=== PATIENT | male | born 2005 | race Caucasian/White ===

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

== ENCOUNTER → 2024-10-06 10:01 | Outpatient (BNV) | payer OTHER, SELFPAY | PROVIDERS: Emergency Provider Emergency Medicine; Visit Provider Radiology Diagnostic Radiology | DX: S62.254A Nondisplaced fracture of neck of first metacarpal bone, right hand, initial encounter for closed fracture (principal) | CPT/HCPCS: 73140 ==

== ENCOUNTER 2024-10-06 10:38 | Emergency (ER) | payer OTHER, SELFPAY ==
--- NOTE | ~2024-10-06 | XR_ITS ---
EXAMINATION: XR FINGER, RIGHT CLINICAL INFORMATION: thumb pain trauma COMPARISON: None available. TECHNIQUE: PA hand and 2 views of the right thumb. FINDINGS: Short linear cortical fragment is seen posterior to the neck of the first metacarpal. Otherwise, joint spaces are preserved. No fracture lines are evident. There are no erosions. Small ossification distal to the ulnar styloid is probably related to a remote ulnar styloid tip fracture, healed with nonunion. XR/XR finger RT min 2V IMPRESSION: Suspected small focal avulsion fracture involving the cortex along the volar neck of the first metacarpal of the right hand. Electronically signed by: Alan Alarcon MD 10/06/2024 11:08 AM EDT
[2024-10-06 10:45] VITALS: BP 145/69; PULSE 96; RESP 18; TEMP 36.6; O2SAT 98; BMI 21.9
--- NOTE | 2024-10-06 11:11 | ED_ITS ---
HPI - Extremity Problem General Chief complaint: Extremity Injury, Upper Stated complaint: Thumb dislocation Time Seen by Provider: 10/06/24 11:09 Source: patient Mode of arrival: ambulatory Limitations: no limitations History of Present Illness ED Provider: Benji Garcia PA-C HPI Narrative: 18-year-old male with history of asthma presents to the ED due to right thumb injury while playing kickball. Patient cites he was sliding into base on his bottom, and had his and to his sides when he jammed his right thumb into the ground hyperextending the digit, no head strike. He states he immediately felt some pain and swelling and came to the ED for evaluation. Patient has not taken anything for pain today. Denies chest pain, shortness of breath, numbness or tingling of the right hand, weakness of the right hand Related Data Previous Rx's ?Medication ?Instructions ?Recorded albuterol sulfate 90 mcg/actuation 2 puff inhalation Q 4-6H PRN 04/25/23 aerosol inhaler shortness of breath or wheez ing, chest tight,cough 6 months #8.5 grams inhalational spacing device #1 ea 04/25/23 (Aerochamber MV spacer) loratadine 10 mg tablet 10 mg PO DAILY #90 tabs 04/11 08/01 Allergies Allergy/AdvReac Type Severity Reaction Status Date / Time No Known Allergies Allergy Verified 10/06/24 10:47 Review of Systems Review of Systems: CONST: Negative for fever, body aches and chills. HENT: Negative for neck pain/stiffness, headache, congestion, sore throat, swelling. EYES: Negative for discharge/pain or vision changes. RESP: Negative for cough/hemoptysis and shortness of breath. CV: Negative chest pain, difficulty breathing, palpitations. ABD: Negative pain, nausea, vomiting. : Negative increase frequency, dysuria, blood in urine or stool. MUSC: Negative for muscle aches, edema. R thumb pain SKIN: Negative rash, lesions/sores. NEURO: Negative headache, dizziness, weakness. COUNT INCLUDES THE [facility] Past Medical History Attestation statement: The following information was validated with the patient. Source: old records reviewed and nursing notes reviewed Medical History Cannabis abuse Current nicotine vaping on some days Allergic to dogs Cat allergies Dust allergy Intermittent asthma with acute exacerbation Social History Social History Household Members Other:: lives w/ mom Housing Other:: w/ Girlfriend x 7mo who is a Jr. at [employer] and she has a dog Advance Directives: No Advance Directives Information Provided: Yes Do you have a plan to hurt others: No Plan Current occupational status: employed and student Current occupation: works at the [employer] Sexual orientation: Straight/Heterosexual Gender identity: Male Physical Exam Vital Signs: Vital Signs: Last Vital Signs Temp 98 F 10/06/24 10:45 Pulse 96 10/06/24 10:45 Resp 18 10/06/24 10:45 BP 145/69 H 10/06/24 10:45 Pulse Ox 98 10/06/24 10:45 O2 Del Method Room Air 10/06/24 10:45 BMI result Body Mass Index 21.9 GENERAL APPEARANCE: ?AxOx4, generally well-appearing, no acute distress. HEENT: ?NC, AT. MMM. EOMI, clear conjunctiva, oropharynx clear. NECK: ?Supple without lymphadenopathy.? No stiffness or restricted ROM. HEART:? Normal rate and regular rhythm, normal S1/S2, no m/r/g LUNGS:? CTAB, moving air well. No crackles or wheezes are heard. EXTREMITIES: ?Without cyanosis, clubbing or edema. R hand first metacarpal with mild palmar edema without ecchymosis, ROM intact, opposition intact, SILT, appropriate capillary refill, radial pulses 2+ bilaterally, no scaphoid tenderness to palpation NEUROLOGICAL: ?Grossly nonfocal. Alert and oriented, moving all 4 extremities. Observed to ambulate with normal gait. Skin: ?Warm and dry without any rash. Medical Decision Making Medical Decision Making MDM Narrative: 18-year-old right-hand dominant male with history of asthma presents to the ED due to right thumb injury while playing kickball. Patient cites he was sliding into base on his bottom, and had his and to his sides when he jammed his right thumb into the ground hyperextending the digit, no head strike. He states he immediately felt some pain and swelling and came to the ED for evaluation. Patient has not taken anything for pain today. VSS, nontoxic appearing, no acute distress. Physical exam of right 1st metacarpal reveals tenderness over proximal MCP joint, ROM intact, opposition intact, appropriate capillary refill, SILT, able to make full fist, no scaphoid tenderness mild edema of the palmar aspect without ecchymosis, patient without numbness or tingling. X-ray reveals suspected small focal avulsion fracture involving the cortex along the volar neck of the 1st metacarpal of the right hand. Patient placed in a thumb spica velcro splint. I counseled patient on keeping splint on during day and night, may remove velcro splint for showering taking care not to extend the thumb, and placing velcro splint back on immediately after shower. Counseled patient to alternate Tylenol and ibuprofen every 6 hours for pain relief, icing, elevation, and follow up with Orthopedics. Patient understands the course, is in agreement with the plan. Differential Diagnosis Differential Diagnoses: The differential diagnosis associated with the presentation includes Thumb fracture Thumb dislocation UCL tear Admission/Observation Consideration of admission/observation: Escalation of care including admission/observation considered Independent Interpretation I performed an independent interpretation of an: Plain X-Ray Interpretation: I personally interpreted the x-ray- without dislocation fracture does not involve the joint space Radiology Impression Discussion of test interpretation with radiology: I have reviewed the radiologist's reading. Radiologist Impression: FINDINGS: Short linear cortical fragment is seen posterior to the neck of the first metacarpal. Otherwise, joint spaces are preserved. No fracture lines are evident. There are no erosions. Small ossification distal to the ulnar styloid is probably related to a remote ulnar styloid tip fracture, healed with nonunion. XR/XR finger RT min 2V IMPRESSION: Suspected small focal avulsion fracture involving the cortex along the volar neck of the first metacarpal of the right hand. Electronically signed by: Alan Alarcon MD 10/06/2024 11:08 AM EDT Dictated By: Alan Alarcon MD Signed By: <Electronically signed by Alan Alarcon MD in OV> 10/06/24 1108 External Record Review External record reviewed: Inpatient record, Office record and Outpatient record Discharge Plan Discharge Clinical Impression: Avulsion fracture of right thumb Patient Disposition: Home, Self-Care Instructions: Thumb Fracture (ED) Additional Instructions: You were evaluated in the ED today after injuring her right thumb. The x-ray of your thumb revealed a small avulsion fracture without dislocation. Your physical exam revealed tenderness over your thumb, and some swelling of the palmar aspect of your thumb. You had full range of motion, you had appropriate capillary refill time, sensation is intact, without numbness or tingling. Thumb spica velcro splint placed while in the department. You were given 400 mg of ibuprofen for pain management. To control pain you can take 500 mg of Tylenol, 400 mg of ibuprofen every 6 hours. You can ice the area and 15 minute increments and elevation for swelling. Please follow up with the orthopedic doctors, you need to call their office they will not call you. Please keep the splint on during the day during her activities, and at night while sleeping. You can take the splint off to shower, be sure to take care of the positioning of your thumb while showering, and place the splint on immediately after. Please return to the emergency department if you experience worsening pain of your right thumb, decreased sensation of your right thumb, weakness of your right hand or thumb, or any other new/worsening/concerning symptom Prescriptions: No Action albuterol sulfate 90 mcg/actuation HFA aerosol inhaler 2 puff inhalation Q4-6H PRN (Reason: shortness of breath or wheezing, chest tight,cough) 180 Days Qty: 8.5 0RF loratadine 10 mg tablet 10 mg PO DAILY Qty: 90 0RF (DME) Aerochamber MV Spacer See Rx Instructions .Route Qty: 1 0RF Rx Instructions: As directed Referrals: Jose Leblanc PA-C [Emergency Midlevel Provider, Emergency Medicine] [facility] [Provider Group] Print Language: Albanian
[2024-10-06 12:51] VITALS: BP 138/72; PULSE 72; RESP 18; TEMP 36.7; O2SAT 98
--- OUTSIDE RECORDS SUMMARY | 2024-10-06 12:51 | XMS_ITS | Clinical Summary ---
Author Organization [facility] Address [address] [place] [phone] Phone Care Team Providers Care Repairer Wood Furniture Name Role Phone Unavailable Primary Care Provider Unavailabl e Immunizations Immunization Administration Dates Next Due DTaP 11/11/2008, 6,02/26/2005,2004 Hep B, ped/adol 04/23/2005, 5,2004,2004 Hib (PRP-OMP) 10/24/2005, 6,02/26/2005,2004 Influenza, injectable, quadr ivalent, preservative free 01/27/2009,12/03/2008 MMR 11/11/2008,10/24/2005 Pneumococcal Conjugate 10/24/2005,2005,02/26/2005,2004 Polio 11/11/2008, 6,02/26/2005,2004 Varicella 11/11/2008,10/24/2005 Social History Tobacco Use Types Packs/Day Years Used Date Smoking Tobacco: Never Assessed Sex and Gender Information Value Date Recorded Sex Assigned at Not on file Legal Sex Male 1:15 PM EST Gender Identity Not on file Sexual Orientation Not on file Last Filed Vital Signs Vital Sign Reading Time Taken Comments Blood Pressure 82/48 06/21/2010 12:00 AM EDT Pulse - - Temperature 37.1 C (98.7 F) 02/23/2010 12:00 AM EST Respiratory Rate - - Oxygen Saturation - - Inhaled Oxygen Concentration - - Weight 17.9 kg (39 lb 8 oz) 06/21/2010 12:00 AM EDT Height 108 cm (3' 6.5 ) 06/21/2010 12:00 AM EDT Pfwtnc-qaf-Yxdtxo Percentile 47.92% 06/21/2010 1 2:00 AM EDT Growth Chart: CDC (Boys, 2-2 0 Years) Body Mass Index 15.38 06/21/2010 12:00 AM EDT Body Mass Index Percentile 50.11% 06/21/2010 12: 00 AM EDT Growth Chart: [facility] (Boys, 2-2 0 Years) Plan of Treatment Health Maintenance Due Date Last Done Comments DTaP,Tdap,and Td Vaccines (5 - Tdap) 10/20/2015 11/11/2008, 04/23/2005, 02/26/2005, Additional history exists HPV Vaccines (1 - Male 3-dose series) 10/20/2019 Men B Vaccine (1 of 2 - Standard) 2020 COVID-19 Vaccine (1 - season) 2023 Influenza Vaccines (#1) 2024 01/27/2009, 12/03 Hepatitis B Vaccines Completed 04/23/2005, 02/26/2005, 2004, Additional history exists HIB Vaccines Completed 10/24/2005, 04/11, 02/26/2005, Additional history exists Pneumococcal Vaccine Completed 10/24/2005, 04/23/2005, 02/26/2005, Additional history exists IPV Vaccines Completed 11/11/2008, 04/11, 02/26/2005, Additional history exists MMR Vaccines Completed 11/11/2008, 10/24/2005 Varicella Vaccines Completed 11/11/2008, 10/24/2005 Hepatitis A Vaccines Aged Out No long er eligible based on patient's age to complete this topic Meningococcal Vaccine Aged Out No remy melida eligible based on patient's age to complete this topic Insurance [facility] NON PCC
[2024-10-06 13:08] VITALS: BP 138/72; PULSE 72; RESP 18; TEMP 36.7; O2SAT 98
== END 2024-10-06 13:08 | disposition home or self-care (01) ==
PROVIDERS: Emergency Provider Emergency Medicine
DX: S62.501A Fracture of unspecified phalanx of right thumb, initial encounter for closed fracture (principal); W21.09XA Struck by other hit or thrown ball, initial encounter; M79.644 Pain in right finger(s); Y93.6A Activity, physical games generally associated with school recess, summer camp and children; Y92.9 Unspecified place or not applicable; Y99.9 Unspecified external cause status
CPT/HCPCS: 73140; 99283; 99284

== ENCOUNTER 2024-10-16 08:47 | Outpatient (REF) | payer OTHER, SELFPAY ==
--- NOTE | ~2024-10-16 | XR_ITS ---
EXAMINATION: XR HAND 3 OR MORE VIEWS RIGHT HISTORY: M79.641 - Pain in right hand COMPARISON: Comparison is made with the prior examination of the right thumb dated 10/06/2024. FINDINGS: Three views of the right hand are submitted. Osseous mineralization is normal. The previously seen a avulsion fracture of the head of the 1st metacarpal is less well visualized, and only seen on one view. Again seen is a well-corticated osseous density adjacent to the tip of the ulnar styloid which is likely the result of old trauma. The bones are otherwise intact. The joint spaces are preserved. The soft tissues are unremarkable. XR/XR hand RT min 3V IMPRESSION: The previously seen a avulsion fracture of the head of the metacarpal of the thumb is less well visualized. Electronically signed by: Harsha Rice MD 10/16/2024 01:59 PM EDT
--- OUTSIDE RECORDS SUMMARY | 2024-10-16 09:02 | XMS_ITS | Clinical Summary ---
Author Organization [facility] Address [address] [place] [phone] Phone Care Team Providers Care Morals Squad Police Officer Name Role Phone Unavailable Primary Care Provider [...] (3' 6.5 ) 06/21/2010 12:00 AM EDT Pbanln-dwf-Grqplc Percentile 47.92% 06/21/2010 1 2:00 AM EDT Growth Chart: CDC (Boys, 2-2 0 Years) Body Mass Index 15.38 06/21/2010 12:00 AM EDT Body Mass Index Percentile 50.11% 06/21/2010 12: 00 AM EDT Growth Chart: [facility] (Boys, 2-2 0 Years) Plan of Treatment [...] patient's age to complete this topic Insurance [facility] NON PCC
== END 2024-10-16 08:48 | disposition home or self-care (01) ==
LOC: HO.HOSX 08:47
DX: S62.501A Fracture of unspecified phalanx of right thumb, initial encounter for closed fracture (principal)
CPT/HCPCS: 73130; 99202

== ENCOUNTER 2024-10-16 12:36 | Outpatient (AMB) | payer OTHER, SELFPAY ==
--- NOTE | 2024-10-16 12:58 | A.OFFVIS_ITS ---
Vital Signs 10/16/24 13:02 Height 5 ft 8 in Weight 138 lb BMI 21.0 Handedness Right Intake Visit Reasons: FC-Rt thumb avulsion fx DOI: 10/05/24 Intake Note: Jeison is a 18 year old right hand dominant male, new patient, who presents today for an ED follow up status post right thumb avulsion fracture, DOI: 10/05/24. Patient [place] [facility] [place] on 10/05/24 he was playing kickball and while sliding into a base his hand got stuck under the base, he jammed his right thumb into the ground hyperextending the digit. At the ED, he was placed in thumb spica velcro splint. A script of 400 mg of ibuprofen was sent. He reports he has not had much pain in the right thumb since date of injury. Denies numbness and tingling. He expresses he wears the brace at all times exept for showering and putting lotion on. Allergies No Known Allergies Allergy (Verified 10/16/24 13:02) HPI HPI FC-Rt thumb avulsion fx DOI: 10/05/24: Details: Jeison is a 18 year old right hand dominant male, new patient, who presents today for an ED follow up status post right thumb avulsion fracture, DOI: 10/05/24. Patient reported to [facility] on 10/05/24 he was playing kickball and while sliding into a base his hand got stuck under the base, he jammed his right thumb into the ground hyperextending the digit. At the ED, he was placed in thumb spica velcro splint. A script of 400 mg of ibuprofen was sent. He reports he has not had much pain in the right thumb since date of injury. Denies numbness and tingling. He expresses he wears the brace at all times exept for showering and putting lotion on. [facility] Medical History Cannabis abuse Current nicotine vaping on some days Allergic to dogs Cat allergies Dust allergy Intermittent asthma with acute exacerbation Social History (Updated 10/16/24 @ 13:03 by ALBINO Delgado) Household Members Other:: lives w/ mom Housing Other:: w/ Girlfriend x 7mo who is a Jr. at [employer] and she has a dog Current occupational status: student Current occupation: right handed Sexual orientation: Straight/Heterosexual Gender identity: Male Review of Systems Const All systems reviewed & are unremarkable except as noted in HPI and below Physical Exam Vital Signs: BMI result Body Mass Index 21.0 Extrem Other: Patient is alert, oriented, and in no acute distress. Neuro: Normal sensation of the tips of all digits of the right hand at this time Vascular: Cap refill brisk Pain: Minimal tenderness to palpation of the ulnar aspect of the MCP joint of the right thumb No pain with attempted range of motion ROM: Patient is able to flex and extend the right thumb fully Patient does have Good endpoints with varus and valgus testing of the MCP joint of the right thumb There is an area of prominence on the ulnar aspect of the MCP joint of the right thumb Skin: No lacerations or abrasions. General: No ecchymosis, erythema, or evidence of infection. Psych: Appears grossly normal Affect normal Attitude cooperative Results Reviewed Results Reviewed: X-rays obtained in the office today and independently reviewed by me, Mane Gaxiola PA-C, demonstrate tiny avulsion fracture on the ulnar aspect of the MCP joint of the right thumb concerning for avulsion injury of the UCL. Assessment & Plan Assessment & Plan (1) Avulsion fracture of right thumb: Code(s): S62.501A - Fracture of unspecified phalanx of right thumb, initial encounter for closed fracture Category: Medical Plan 1. Avulsion fracture of MCP joint of right thumb Date of injury 10/05/2024 Patient is educated about this injury Patient is educated about the typical treatment course At this time, patient is referred to Dr. Mireles, as I feel there is a risk that he has a potential injury to his UCL and may require further intervention However, the patient does have a good endpoint with varus and valgus testing of the UCL of the right thumb, so I do not feel it is a full-thickness tear if there is a tear to the UCL Patient should be re-evaluated by Dr. Mireles early next week for determination if any further intervention is indicated Orders: Orders XR hand RT min 3V 10/16/24 M79.641 - Pain in right hand Coding Level of Care Code New Pt Level 3 (09202) Diagnoses Avulsion fracture of right thumb S62.501A
[2024-10-16 13:02] VITALS: BMI 21.0
== END 2024-10-16 13:31 | disposition home or self-care (01) ==
LOC: HO.HOS 12:37
DX: S62.501A Fracture of unspecified phalanx of right thumb, initial encounter for closed fracture (principal)
CPT/HCPCS: 99203

== ENCOUNTER → 2024-10-16 12:43 | Outpatient (BNV) | payer OTHER, SELFPAY | PROVIDERS: Visit Provider Radiology Diagnostic Radiology | DX: M79.641 Pain in right hand (principal) | CPT/HCPCS: 73130 ==

== ENCOUNTER 2024-10-21 13:41 | Outpatient (AMB) | payer OTHER, SELFPAY ==
--- NOTE | 2024-10-21 14:00 | A.OFFVIS_ITS ---
Intake Visit Reasons: OV: poss UCL injury, Rt Thumb Intake Note: Jeison is a 18 year old right hand dominant male who presents today for an follow up status post right thumb injury, DOI: 10/05/24. Patient reported to [facility] on 10/05/24. He was playing kickball, while sliding into a base his hand got stuck under the base, he jammed his right thumb into the ground hyperextending the digit. At his last visit with Mane Gaxiola he was placed in thumb spica splint. Currently states he has no pain, he has not removed his splint. Patient referred to Dr. Mireles for further evaualtion. Allergies No Known Allergies Allergy (Verified 10/21/24 14:01) HPI HPI OV: poss UCL injury, Rt Thumb: Details: Jeison is a 19 year old right hand dominant man who presents for a right thumb avulsion fracture, S/P kickball injury, DOI: 10/05/24. He was seen in the ED and given a thumb spica splint. He says he is doing better and his pain has improved. He has stiffness & tightness in his thumb with ROM. He has been wearing his splint as instructed [facility] Medical History Cannabis abuse Current nicotine vaping on some days Allergic to dogs Cat allergies Dust allergy Intermittent asthma with acute exacerbation Social History Household Members Other:: lives w/ mom Housing Other:: w/ Girlfriend x 7mo who is a Jr. at [employer] and she has a dog Current occupational status: student Current occupation: right handed Sexual orientation: Straight/Heterosexual Gender identity: Male Review of Systems Const All systems reviewed & are unremarkable except as noted in HPI and below Physical Exam Const General: cooperative, healthy appearing and no acute distress Orientation/consciousness: patient oriented x3 HEENT Head: Yes normocephalic and Yes atraumatic Eyes EOM: EOMs intact bilaterally Resp Effort & Inspection: normal respiratory effort and able to speak in complete sentences Cardio Jugular venous distension: no JVD Skin General skin exam: turgor normal Rashes: no rashes Neuro General: patient oriented x3 Extrem Other: Evaluation of Right Upper Extremity: The patient is alert, oriented, and in no acute distress Neuro: Median, Ulnar, Radial nerves motor and sensory intact and sensation is normal to the tips of all digits Vascular: Cap refill brisk ROM: He can bring his fingers closed to a fist and back into extension With regards to the right thumb MCP joint: Some laxity of the ulnar collateral ligament in extension and at ~45 degrees flexion, there does appear to be an end point No laxity and good end point of the radial collateral ligament Skin: No lacerations or abrasions. General: No Ecchymosis. No Erythema or evidence of infection. He has some swelling in the MCP joint of the thumb Tender over the ulnar aspect of the MCP joint Some enlargement of the right thumb MCP joint on the ulnar side, which is not present on the uninjured thumb. This is worrisome for a possible stener lesion Radiographs: 3 views of the right thumb were taken and viewed by me today in clinic. They show a tiny volar avulsion fracture of the volar aspect of the 1st metacarpal head, just proximal to the sesamoid bones. No fracture seen on AP view. Psych Appearance: grossly normal Affect: normal affect Attitude: cooperative Assessment & Plan Assessment & Plan (1) Avulsion fracture of right thumb: Code(s): S62.501A - Fracture of unspecified phalanx of right thumb, initial encounter for closed fracture Category: Medical (2) Traumatic rupture of collateral ligament of right thumb: Code(s): S63.418A - Traumatic rupture of collateral ligament of other finger at metacarpophalangeal and interphalangeal joint, initial encounter Category: Medical Plan Assessment & Plan: 1. Right thumb avulsion fracture, S/P Kickball injury 2. Right thumb MCP joint possible UCL injury, S/P Kickball injury DOI: 10/05/24 I educated him about this condition I discussed operative and non-operative treatment options He was fitted for a new thumb splint, to be worn until his next appointment. I talked to him about the importance of activity modification and not grasping objects with his right thumb. I ordered an MRI to evaluate for a possible right thumb MCP joint ulnar collateral ligament injury, depending on results he may require surgical intervention He will follow up when completed for review. This should be a 30 minute appointment. Scribed for Shannon Mireles MD by Frankie Sr medical office specialist, on 10/21/24 at 2:30 PM, EST. Orders: Orders MR hand RT wo con Today S63.418A - Traumatic rupture of collateral ligament of other finger at metacarpophalangeal and interphalangeal joint, initial encounter Coding Level of Care Code Est Pt Level 4 (22692) Diagnoses Avulsion fracture of right thumb S62.501A Traumatic rupture of collateral ligament of right thumb S63.418A
--- OUTSIDE RECORDS SUMMARY | 2024-10-21 14:08 | XMS_ITS | Clinical Summary ---
Author Organization [facility] Address [address] [place] [phone] Phone Care Team Providers Care Oil Well Service Unit Operator Name Role Phone Unavailable Primary Care Provider [...] (3' 6.5 ) 06/21/2010 12:00 AM EDT Body Mass Index 15.38 06/21/2010 12:00 AM EDT Plan of Treatment Health Maintenance Due Date [...] patient's age to complete this topic Insurance [facility] NON PCC
== END 2024-10-21 14:43 | disposition home or self-care (01) ==
LOC: HO.HOS 13:42
PROVIDERS: Visit Provider Orthopaedic Surgery
DX: S62.501A Fracture of unspecified phalanx of right thumb, initial encounter for closed fracture (principal); S63.418A Traumatic rupture of collateral ligament of other finger at metacarpophalangeal and interphalangeal joint, initial encounter
CPT/HCPCS: 99214

== ENCOUNTER → 2024-10-21 13:41 | Outpatient (BNVA) | payer OTHER, SELFPAY | PROVIDERS: Visit Provider Orthopaedic Surgery | DX: S62.501A Fracture of unspecified phalanx of right thumb, initial encounter for closed fracture (principal); S63.418A Traumatic rupture of collateral ligament of other finger at metacarpophalangeal and interphalangeal joint, initial encounter | CPT/HCPCS: 99212 ==

== ENCOUNTER 2024-12-16 17:51 | Outpatient (REF) | payer OTHER, SELFPAY ==
--- NOTE | ~2024-12-16 | MR_ITS ---
CLINICAL HISTORY: S63.418A - Traumatic rupture of collateral ligament of other finger at m... --- Additional Notes or Special Instructions: Evaluate for possible right thumb MCP joint ulnar collateral ligament MR of the right thumb without contrast. No comparison MR. Findings: There are contusions of the 1st metacarpal head and base of the proximal phalanx of the thumb. The ulnar collateral ligament of the 1st MCP joint is torn. No tendon disruption is seen. There is ill-defined soft tissue edema adjacent to the 1st MCP joint. There is marrow edema in the trapezoid, capitate, and 3rd metacarpal head likely representing mild contusions. Impression: Bone contusions adjacent to the 1st MCP joint with a tear of the ulnar collateral ligament. Suspect mild contusions of the trapezoid, capitate and 3rd metacarpal head. This document has been electronically signed by: Eugene Rodriguez MD on 12/16/2024 18:59:48
== END 2024-12-16 17:52 | disposition home or self-care (01) ==
LOC: HO.MRI 17:51
PROVIDERS: Visit Provider Orthopaedic Surgery
DX: S63.418D Traumatic rupture of collateral ligament of other finger at metacarpophalangeal and interphalangeal joint, subsequent encounter (principal)
CPT/HCPCS: 73218

== ENCOUNTER → 2024-12-16 18:02 | Outpatient (BNV) | payer OTHER, SELFPAY | PROVIDERS: Visit Provider Radiology Diagnostic Radiology | DX: S63.641A Sprain of metacarpophalangeal joint of right thumb, initial encounter (principal); W22.09XA Striking against other stationary object, initial encounter | CPT/HCPCS: 73218 ==